=== PATIENT | female | born 1955 | race Caucasian/White ===

== ENCOUNTER 2016-09-21 12:17 | Outpatient (CLI) | payer OTHER | END 2016-09-21 12:18 | disposition home or self-care (01) | DX: S83.241A Other tear of medial meniscus, current injury, right knee, initial encounter (principal); M17.11 Unilateral primary osteoarthritis, right knee ==

== ENCOUNTER 2016-10-27 08:00 | Outpatient (CLI) | payer OTHER | END 2016-10-27 08:01 | disposition home or self-care (01) | DX: R73.9 Hyperglycemia, unspecified (principal) ==

== ENCOUNTER 2017-08-11 12:35 | Day surgery (SDC) | payer OTHER ==
[2017-08-11] MEDS ORDERED: LACTATED RINGERS 1,000 ML IV ONE (13:01)
[2017-08-11] MEDS ORDERED: MIDAZOLAM 2 MG/2 ML VIAL IVP ONE (13:45)
[2017-08-11] MEDS ORDERED: fentaNYL 100 MCG/2 ML VIAL IVP ONE (13:45)
[2017-08-11] MEDS ORDERED: fentaNYL 250 MCG/5 ML VIAL IVP ONE (13:45)
[2017-08-11 14:50] VITALS: BP 106/57
== END 2017-08-11 12:36 | disposition home or self-care (01) ==
LOC: SDS 12:35
PROVIDERS: ATTEND Surgery
PROC: 0DJD8ZZ Inspection of Lower Intestinal Tract, Via Natural or Artificial Opening Endoscopic (ICD-10-PCS; principal; 2017-08-11 13:45)
DX: Z12.11 Encounter for screening for malignant neoplasm of colon (principal); K57.30 Diverticulosis of large intestine without perforation or abscess without bleeding; K64.4 Residual hemorrhoidal skin tags; E78.5 Hyperlipidemia, unspecified; J45.909 Unspecified asthma, uncomplicated; Z79.82 Long term (current) use of aspirin
CPT/HCPCS: 45378; J3010; J7120

== ENCOUNTER 2018-05-18 09:41 | Outpatient (CLI) | payer OTHER ==
[2018-05-18 13:35] LABS: BASOPHILS % (AUTO) 0.6 %; EOSINOPHILS # (AUTO) 0.2 10^3/uL (0.0-0.7); EOSINOPHILS % (AUTO) 3.2 %; HGB - HEMOGLOBIN 15.6 g/dL (12.0-16.0); LYMPHOCYTES # (AUTO) 2.5 10^3/uL (1.5-3.5); LYMPHOCYTES % (AUTO) 34.1 %; MEAN CORPUSCULAR HEMOGLOBIN 29.8 pg (27.0-31.0); MEAN CORPUSCULAR HGB CONC 34.3 g/dL (32.0-36.0); MEAN CORPUSCULAR VOLUME 87.1 fL (81.0-99.0); MEAN PLATELET VOLUME 9.1 fL (7.9-10.8); MONOCYTES # (AUTO) 0.5 10^3/uL (0.0-1.0); MONOCYTES % (AUTO) 7.1 %; PLT - PLATELET COUNT 274 10^3/uL (130-450); RED BLOOD COUNT 5.21 10^6/uL (4.20-5.40); RED CELL DISTRIBUTION WIDTH 13.2 % (12.0-15.0); WHITE BLOOD COUNT 7.3 x10^3/uL (4.8-10.8)
[2018-05-18 19:53] LABS: FERRITIN 89.8 ng/mL (11.0-306.8); FREE T4 (FREE THYROXINE) 0.89 ng/dL (0.58-1.64); THYROID STIMULATING HORMONE 0.85 uIU/mL (0.34-5.60)
== END 2018-05-18 23:59 | disposition home or self-care (01) ==
LOC: LAB.WCP 09:41
PROVIDERS: ATTEND Physician Assistant Medical
DX: R53.83 Other fatigue (principal)
CPT/HCPCS: 36415; 82306; 82607; 82728; 84439; 84443; 84481; 85025

== ENCOUNTER 2018-07-24 12:56 | Outpatient (CLI) | payer OTHER | END 2018-07-24 12:57 | disposition home or self-care (01) | LOC: SC 12:56 | PROVIDERS: ATTEND Internal Medicine Pulmonary Disease | DX: G47.10 Hypersomnia, unspecified (principal); G47.8 Other sleep disorders; R06.83 Snoring; E66.9 Obesity, unspecified; Z68.36 Body mass index [BMI] 36.0-36.9, adult | CPT/HCPCS: 99203; 99212 ==

== ENCOUNTER 2018-08-05 20:46 | Outpatient (CLI) | payer OTHER | END 2018-08-05 20:47 | disposition home or self-care (01) | LOC: SC 20:46 | PROVIDERS: ATTEND Internal Medicine Pulmonary Disease | DX: G47.33 Obstructive sleep apnea (adult) (pediatric) (principal) | CPT/HCPCS: 95810 ==

== ENCOUNTER 2018-08-24 12:17 | Outpatient (CLI) | payer OTHER ==
--- NOTE | 2018-08-24 14:28 | Mammography Report ---
Reason: SCREENING MAMMO Procedure Date: 08/24/2018 Accession Number: [id number] / [id number] Procedure: ANA - Screening Mammo w/Bassem CPT Code: FULL RESULT: EXAM: Screening Mammo w/Bassem DATE: 08/24/2018 2:19 PM CLINICAL HISTORY: Screening encounter. History of nulliparity and early menses. Family history of breast cancer in the father around the age of 70. TECHNIQUE: Bilateral CC and MLO views were obtained. A left laterally exaggerated CC view was obtained. COMPARISON: 03/23/2017 through 01/04/2012. FINDINGS: The breasts demonstrate scattered fibroglandular densities bilaterally. There are coarse typically benign calcifications. No suspicious masses, clustered microcalcifications, or regions of architectural distortion are identified. IMPRESSION: Benign findings RECOMMENDATION: Routine annual screening unless otherwise clinically indicated. BIRADS CATEGORY 2: Benign findings STANDARD QUALIFYING STATEMENTS: 1. This examination was not reviewed with the aid of Computer-Aided Detection (CAD). 2. A negative or benign imaging report should not delay biopsy if clinically suspicious findings are present. Consider surgical consultation if warrented. More than 5% of cancers are not identified by imaging. 3. Dense breasts may obscure an underlying neoplasm. 4. This examination was reviewed with the aid of 3D breast imaging (tomosynthesis).
== END 2018-08-24 12:18 | disposition home or self-care (01) ==
LOC: DI 12:17
DX: Z12.31 Encounter for screening mammogram for malignant neoplasm of breast (principal); Z80.3 Family history of malignant neoplasm of breast
CPT/HCPCS: 77063; 77067

== ENCOUNTER 2018-08-24 12:17 | Outpatient (CLI) | payer OTHER ==
--- NOTE | 2018-08-25 10:47 | DEXA Report ---
Reason: ENCOUNTER FOR SCREENING FOR OSTEOPOROSIS Procedure Date: 08/24/2018 Accession Number: [id number] / [id number] Procedure: DEX - Dexa Spine and/or Hip CPT Code: FULL RESULT: EXAM: Dexa Spine and/or Hip DATE: 08/24/2018 1:05 PM CLINICAL HISTORY: ENCOUNTER FOR SCREENING FOR OSTEOPOROSIS TECHNIQUE: Dual energy x-ray absorptiometry (DXA) was performed on a [employer] System. Regions measured are the AP Spine, femoral neck, and if needed forearm. COMPARISON: None. In accordance with the International Society for Clinical Densitometry (ISCD) guidelines, data from previous exams may be reanalyzed using current recommendations and techniques. This is done to allow a more accurate basis for comparison with the current study. FINDINGS: The data for the lumbar spine is as follows: BMD (g/cm/cm) T-SCORE Z-SCORE REGION L1 1.056 -0.6 -0.2 L2 1.044 -1.3 -0.9 L3 1.027 -1.4 -1.0 L4 1.068 -1.1 -0.7 TOTAL 1.050 -1.1 -0.7 NOTE: All evaluable vertebrae are used for classification The data for the hip is as follows: BMD (g/cm/cm) T-SCORE Z-SCORE REGION Neck 0.890 -1.1 -0.3 TOTAL 1.068 0.5 0.9 NOTE: The femoral neck or total proximal femur, whichever is lowest, is used for classification. IMPRESSION: THE WHO CLASSIFICATION BASED ON THE INTERNATIONAL REFERENCE STANDARD IS OSTEOPENIA. THE FRACTURE RISK IS INCREASED. RECOMMENDATION: Patients with diagnosis of osteoporosis or osteopenia should have regular bone mineral density assessment. For those eligible for Medicare, routine testing is allowed once every 2 years. Testing frequency can be increased for patients who have rapidly progressing disease or for those who are receiving medical therapy to restore bone mass. COMMENT: World Health Organization (WHO) definitions for osteoporosis and osteopenia: NORMAL BMD: T-score at -1.0 or higher, fracture risk is low OSTEOPENIA BMD: T-score between -1.0 and -2.5, fracture risk is increased. OSTEOPOROSIS BMD: T-score at -2.5 or lower, fracture risk is high. National Osteoporosis Foundation recommends: 1. Obtain adequate dietary calcium (at least 1200 mg per day) and vitamin D (400-800 international units per day). 2. Participate, as appropriate, in regular weightbearing and muscle-strengthening exercise. 3. Avoid tobacco use and reduce alcohol and caffeine intake. 4. For more detailed information see the website at www.NOF.org.
== END 2018-08-24 12:18 | disposition home or self-care (01) ==
LOC: DI 12:17
PROVIDERS: ATTEND Physician Assistant Medical
DX: Z13.820 Encounter for screening for osteoporosis (principal); M85.89 Other specified disorders of bone density and structure, multiple sites
CPT/HCPCS: 77080

== ENCOUNTER 2018-09-19 09:20 | Outpatient (CLI) | payer OTHER | END 2018-09-19 09:21 | disposition home or self-care (01) | LOC: SC 09:20 | PROVIDERS: ATTEND Nurse Practitioner Family | DX: G47.33 Obstructive sleep apnea (adult) (pediatric) (principal) | CPT/HCPCS: 99212; 99214 ==

== ENCOUNTER 2018-12-11 08:00 | Outpatient (CLI) | payer OTHER ==
[2018-12-11 12:20] LABS: HB2 TOTAL 15.5 g/dL; HEMOGLOBIN A1C 0.77 g/dL; HEMOGLOBIN A1C % 6.7 % (4.6-6.2)
[2018-12-11 12:21] LABS: ALBUMIN 4.1 g/dL (3.2-5.5); ALKALINE PHOSPHATASE 83 IU/L (42-121); ALT ALANINE AMINOTRANSFERASE 34 IU/L (10-60); AST ASPARTATE AMINOTRANSFERASE 25 IU/L (10-42); BUN - BLOOD UREA NITROGEN 17 mg/dL (6-20); CALCIUM 9.3 mg/dL (8.5-10.3); CARBON DIOXIDE - CO2 23 mmol/L (21-32); CHLORIDE 106 mmol/L (101-111); CREATININE 0.8 mg/dL (0.4-1.0); GFR - MDRD 72 (>89); GLUCOSE 145 mg/dL (70-100); SODIUM 140 mmol/L (135-145); TOTAL PROTEIN 7.1 g/dL (6.7-8.2)
[2018-12-11 12:22] LABS: ALBUMIN/GLOBULIN RATIO 1.4 (1.0-2.2); CHOL/HDL RATIO 3.9 (<4.4); CHOLESTEROL 150 mg/dL; HDL CHOLESTEROL 38 mg/dL; LDL CHOLESTEROL,CALCULATED 95 mg/dL; LDL/HDL RATIO 2.5 (<4.4); VLDL CHOLESTEROL 17 mg/dL
== END 2018-12-11 08:01 | disposition home or self-care (01) ==
LOC: LAB.WCP 08:00
PROVIDERS: ATTEND Physician Assistant Medical
DX: R73.9 Hyperglycemia, unspecified (principal)
CPT/HCPCS: 36415; 80053; 80061; 83036; 83721

== ENCOUNTER 2019-03-26 08:41 | Outpatient (CLI) | payer OTHER ==
[2019-03-26 12:56] LABS: ALBUMIN 4.2 g/dL (3.2-5.5); ALBUMIN/GLOBULIN RATIO 1.6 (1.0-2.2); ALKALINE PHOSPHATASE 67 IU/L (42-121); ALT ALANINE AMINOTRANSFERASE 36 IU/L (10-60); AST ASPARTATE AMINOTRANSFERASE 23 IU/L (10-42); BILIRUBIN,TOTAL 1.1 mg/dL (0.2-1.0); BUN - BLOOD UREA NITROGEN 20 mg/dL (6-20); CALCIUM 9.4 mg/dL (8.5-10.3); CARBON DIOXIDE - CO2 23 mmol/L (21-32); CHLORIDE 107 mmol/L (101-111); CHOL/HDL RATIO 4.1 (<4.4); CHOLESTEROL 130 mg/dL; CREATININE 0.9 mg/dL (0.4-1.0); GFR - MDRD 63 (>89); GLUCOSE 133 mg/dL (70-100); HDL CHOLESTEROL 32 mg/dL; LDL CHOLESTEROL,CALCULATED 76 mg/dL; LDL/HDL RATIO 2.4 (<4.4); SODIUM 139 mmol/L (135-145); TOTAL PROTEIN 6.9 g/dL (6.7-8.2); VLDL CHOLESTEROL 22 mg/dL
[2019-03-26 14:05] LABS: HB2 TOTAL 15.5 g/dL; HEMOGLOBIN A1C 0.73 g/dL; HEMOGLOBIN A1C % 6.5 % (4.6-6.2)
== END 2019-03-26 23:59 | disposition home or self-care (01) ==
LOC: LAB.WCP 08:41
PROVIDERS: ATTEND Physician Assistant Medical
DX: E11.9 Type 2 diabetes mellitus without complications (principal)
CPT/HCPCS: 36415; 80053; 80061; 83036; 83721

== ENCOUNTER 2019-06-22 07:00 | Outpatient (CLI) | payer MEDICARE, OTHER ==
[2019-06-22 12:23] LABS: CALCIUM 9.2 mg/dL (8.5-10.3); CREATININE 0.9 mg/dL (0.4-1.0)
[2019-06-22 12:34] LABS: HB2 TOTAL 16.7 g/dL; HEMOGLOBIN A1C 0.78 g/dL; HEMOGLOBIN A1C % 6.4 % (4.6-6.2)
== END 2019-06-22 23:59 | disposition home or self-care (01) ==
LOC: LAB.WCP 07:00
PROVIDERS: ATTEND Physician Assistant Medical
DX: E11.9 Type 2 diabetes mellitus without complications (principal)
CPT/HCPCS: 36415; 80048; 83036

== ENCOUNTER 2019-10-23 08:57 | Outpatient (CLI) | payer MEDICARE, BC ==
[2019-10-23 14:09] LABS: HB2 TOTAL 16.1 g/dL; HEMOGLOBIN A1C 0.72 g/dL; HEMOGLOBIN A1C % 6.2 % (4.6-6.2)
[2019-10-23 14:10] LABS: BASOPHILS % (AUTO) 0.6 %; EOSINOPHILS # (AUTO) 0.3 10^3/uL (0.0-0.7); EOSINOPHILS % (AUTO) 3.7 %; HGB - HEMOGLOBIN 15.2 g/dL (12.0-16.0); LYMPHOCYTES # (AUTO) 2.8 10^3/uL (1.5-3.5); MEAN CORPUSCULAR HEMOGLOBIN 29.1 pg (27.0-31.0); MEAN CORPUSCULAR HGB CONC 31.9 g/dL (32.0-36.0); MEAN PLATELET VOLUME 10.9 fL (7.9-10.8); MONOCYTES # (AUTO) 0.5 10^3/uL (0.0-1.0); MONOCYTES % (AUTO) 7.3 %; NEUTROPHILS # (AUTO) 3.1 10^3/uL (1.5-6.6); NEUTROPHILS % (AUTO) 46.1 %; PLT - PLATELET COUNT 264 10^3/uL (130-450); RED BLOOD COUNT 5.23 10^6/uL (4.20-5.40); RED CELL DISTRIBUTION WIDTH 13.1 % (12.0-15.0); WHITE BLOOD COUNT 6.7 x10^3/uL (4.8-10.8)
[2019-10-23 14:22] LABS: ALBUMIN 4.1 g/dL (3.2-5.5); ALBUMIN/GLOBULIN RATIO 1.4 (1.0-2.2); ALKALINE PHOSPHATASE 82 IU/L (42-121); ALT ALANINE AMINOTRANSFERASE 43 IU/L (10-60); AST ASPARTATE AMINOTRANSFERASE 31 IU/L (10-42); BILIRUBIN,TOTAL 1.1 mg/dL (0.2-1.0); BUN - BLOOD UREA NITROGEN 17 mg/dL (6-20); CALCIUM 9.1 mg/dL (8.5-10.3); CARBON DIOXIDE - CO2 24 mmol/L (21-32); CHLORIDE 106 mmol/L (101-111); CHOL/HDL RATIO 4.4 (<4.4); CHOLESTEROL 154 mg/dL; CREATININE 0.7 mg/dL (0.4-1.0); GLUCOSE 132 mg/dL (70-100); HDL CHOLESTEROL 35 mg/dL; LDL CHOLESTEROL,CALCULATED 96 mg/dL; LDL/HDL RATIO 2.7 (<4.4); SODIUM 139 mmol/L (135-145); VLDL CHOLESTEROL 23 mg/dL
== END 2019-10-23 23:59 | disposition home or self-care (01) ==
LOC: LAB.WCP 08:57
PROVIDERS: ATTEND Physician Assistant Medical
DX: E11.9 Type 2 diabetes mellitus without complications (principal); E78.5 Hyperlipidemia, unspecified; R53.83 Other fatigue; I10 Essential (primary) hypertension
CPT/HCPCS: 36415; 80053; 80061; 82043; 83036; 83721; 84443; 85025

== ENCOUNTER 2020-01-28 08:00 | Outpatient (CLI) | payer MEDICARE, BC ==
[2020-01-28 12:24] LABS: BUN - BLOOD UREA NITROGEN 23 mg/dL (6-20); CALCIUM 9.3 mg/dL (8.5-10.3); CARBON DIOXIDE - CO2 23 mmol/L (21-32); CHLORIDE 106 mmol/L (101-111); CHOL/HDL RATIO 3.8 (<4.4); CHOLESTEROL 136 mg/dL; CREATININE 0.8 mg/dL (0.4-1.0); GLUCOSE 140 mg/dL (70-100); HDL CHOLESTEROL 36 mg/dL; LDL CHOLESTEROL,CALCULATED 77 mg/dL; LDL/HDL RATIO 2.1 (<4.4); SODIUM 137 mmol/L (135-145); VLDL CHOLESTEROL 23 mg/dL
[2020-01-28 12:58] LABS: HEMOGLOBIN A1c% 6.8 % (4.27-6.07)
== END 2020-01-28 23:58 | disposition home or self-care (01) ==
LOC: LAB.WCP 08:00
PROVIDERS: ATTEND Physician Assistant Medical
DX: E11.9 Type 2 diabetes mellitus without complications (principal)
CPT/HCPCS: 36415; 80048; 80061; 83036; 83721

== ENCOUNTER 2020-04-30 08:48 | Outpatient (CLI) | payer MEDICARE, BC ==
[2020-04-30 13:28] LABS: CALCIUM 9.6 mg/dL (8.5-10.3); CREATININE 0.8 mg/dL (0.4-1.0); POTASSIUM 4.1 mmol/L (3.5-5.0)
[2020-04-30 14:16] LABS: ESTIMATED AVERAGE GLUCOSE 148 mg/dL (70-100); HEMOGLOBIN A1c% 6.8 % (4.27-6.07)
== END 2020-04-30 23:59 | disposition home or self-care (01) ==
LOC: LAB.WCP 08:48
PROVIDERS: ATTEND Physician Assistant Medical
DX: E11.9 Type 2 diabetes mellitus without complications (principal)
CPT/HCPCS: 36415; 80048; 83036

== ENCOUNTER 2020-11-26 08:00 | Outpatient (CLI) | payer MEDICARE, BC ==
[2020-11-26 12:51] LABS: CREATININE,URINE 126.9 mg/dL; MICROALBUM/CREATININE RATIO,UR 12.6 ug/mg (<30.0); MICROALBUMIN,URINE 1.6 mg/dL (0-300.0)
[2020-11-26 12:55] LABS: ESTIMATED AVERAGE GLUCOSE 160 mg/dL (70-100); HEMOGLOBIN A1c% 7.2 % (4.27-6.07)
[2020-11-26 12:56] LABS: THYROID STIMULATING HORMONE 1.28 uIU/mL (0.34-5.60)
[2020-11-26 13:10] LABS: ALBUMIN 4.5 g/dL (3.2-5.5); ALBUMIN/GLOBULIN RATIO 1.7 (1.0-2.2); ALKALINE PHOSPHATASE 76 IU/L (42-121); ALT ALANINE AMINOTRANSFERASE 42 IU/L (10-60); AST ASPARTATE AMINOTRANSFERASE 29 IU/L (10-42); BILIRUBIN,TOTAL 1.3 mg/dL (0.2-1.0); BUN - BLOOD UREA NITROGEN 18 mg/dL (6-20); CALCIUM 9.2 mg/dL (8.5-10.3); CARBON DIOXIDE - CO2 23 mmol/L (21-32); CHLORIDE 104 mmol/L (101-111); CHOL/HDL RATIO 4.6 (<4.4); CHOLESTEROL 147 mg/dL; CREATININE 0.8 mg/dL (0.4-1.0); GFR - MDRD 72 (>89); GLUCOSE 152 mg/dL (70-100); HDL CHOLESTEROL 32 mg/dL; LDL CHOLESTEROL,CALCULATED 87 mg/dL; LDL/HDL RATIO 2.7 (<4.4); POTASSIUM 4.1 mmol/L (3.5-5.0); SODIUM 137 mmol/L (135-145); TOTAL PROTEIN 7.1 g/dL (6.7-8.2); TRIGLYCERIDES 139 mg/dL; VLDL CHOLESTEROL 28 mg/dL
== END 2020-11-26 23:59 | disposition home or self-care (01) ==
LOC: LAB.WCP 08:00
PROVIDERS: ATTEND Physician Assistant Medical
DX: E11.9 Type 2 diabetes mellitus without complications (principal)
CPT/HCPCS: 36415; 80053; 80061; 82043; 82570; 83036; 83721; 84443

== ENCOUNTER 2021-03-02 08:00 | Outpatient (CLI) | payer MEDICARE, BC ==
[2021-03-02 13:19] LABS: CALCIUM 9.3 mg/dL (8.5-10.3); CREATININE 0.7 mg/dL (0.4-1.0); POTASSIUM 4.3 mmol/L (3.5-5.0)
[2021-03-02 14:00] LABS: ESTIMATED AVERAGE GLUCOSE 171 mg/dL (70-100); HEMOGLOBIN A1c% 7.6 % (4.27-6.07)
== END 2021-03-02 23:59 | disposition home or self-care (01) ==
LOC: LAB.WCP 08:00
PROVIDERS: ATTEND Physician Assistant Medical
DX: E11.9 Type 2 diabetes mellitus without complications (principal)
CPT/HCPCS: 36415; 80048; 83036

== ENCOUNTER 2021-03-31 13:35 | Outpatient (CLI) | payer MEDICARE, BC ==
--- NOTE | 2021-04-08 09:02 | Mammography Report ---
BILATERAL DIGITAL SCREENING MAMMOGRAM 3D/2D: 03/31/2021 CLINICAL: Routine screening. Family history of breast cancer. Comparison is made to exams dated: 12/28/2019 mammogram, 08/24/2018 mammogram, 03/23/2017 mammogram, 1 mammogram, 02/21/2015 mammogram, and 01/10/2014 mammogram - [facility]. Th ere are scattered fibroglandular elements in both breasts. No significant masses, calcifications, or other findings are seen in either breast. There has been no significant interval change. IMPRESSION: NEGATIVE There is no mammographic evidence of malignancy. A 1 year screening mammogram is recommended. This exam was interpreted at Station ID: [id number]. NOTE: For mammograms, a report in lay terms will be sent to the patient. Approximately 15% of breast malignancies will not be visualized mammographically. In the management of a palpable breast mass, a negative mammogram must not discourage biopsy of a clinically suspicious lesion. Electronically Signed By: Sridhar Peters M.D. ddp/penrad:04/07/2021 14:55:20 ACR BI-RADS Category 1: Negative 3341F PARENCHYMAL PATTERN: (A) - The breast(s) demonstrate(s) scattered fibroglandular densities. BI-RADS CATEGORY: (1) - 1 RECOMMENDATION: (ANNUAL) - Recommend routine annual screening mammography. [id number] 1 year screening LATERALITY: (B)
== END 2021-03-31 13:36 | disposition home or self-care (01) ==
LOC: DI 13:35
PROVIDERS: ATTEND Physician Assistant Medical
DX: Z12.31 Encounter for screening mammogram for malignant neoplasm of breast (principal); Z80.3 Family history of malignant neoplasm of breast

== ENCOUNTER 2021-03-31 13:40 | Outpatient (CLI) | payer MEDICARE, BC ==
--- NOTE | 2021-03-31 14:47 | DEXA Report ---
PROCEDURE: Dexa Spine and/or Hip INDICATIONS: POST MENOPAUSAL TECHNIQUE: Dual energy x-ray absorptiometry (DXA) was performed on a [employer] System. Regions measur ed are the AP Spine, femoral neck, and if needed forearm. COMPARISON: 08/24/2018 FINDINGS: Lumbar Spine: Bone Mineral Density 1.149 g/cm/cm,T score -0.3, normal bone density Left Femoral Neck: Bone Mineral Density 1.044 g/cm/cm, T score 0.3, normal bone density (T score greater or equal to -1.0: NORMAL) (T score from -1.1 to -2.4: OSTEOPENIA) (T score less than or equal to -2.5 to: OSTEOPOROSIS) Impression: Normal bone density. Patients with diagnosis of osteoporosis or osteopenia should have regular bone mineral density assess ment. For those eligible for Medicare, routine testing is allowed once every 2 years. Testing frequ ency can be increased for patients who have rapidly progressing disease or for those who are receivin g medical therapy to restore bone mass. Reviewed by: Romain Johnson MD on 03/31/2021 2:46 PM PDT Approved by: Romain Johnson MD on 03/31/2021 2:46 PM PDT Station ID: [id number]
== END 2021-03-31 13:41 | disposition home or self-care (01) ==
LOC: DI 13:40
PROVIDERS: ATTEND Physician Assistant Medical
DX: Z78.0 Asymptomatic menopausal state (principal)

== ENCOUNTER 2021-06-08 08:00 | Outpatient (CLI) | payer MEDICARE, BC ==
[2021-06-08 12:23] LABS: ESTIMATED AVERAGE GLUCOSE 180 mg/dL (70-100); HEMOGLOBIN A1c% 7.9 % (4.27-6.07)
[2021-06-08 12:38] LABS: ALBUMIN 4.4 g/dL (3.2-5.5); ALBUMIN/GLOBULIN RATIO 1.6 (1.0-2.2); ALKALINE PHOSPHATASE 68 IU/L (42-121); ALT ALANINE AMINOTRANSFERASE 51 IU/L (10-60); AST ASPARTATE AMINOTRANSFERASE 33 IU/L (10-42); BILIRUBIN,TOTAL 1.2 mg/dL (0.2-1.0); BUN - BLOOD UREA NITROGEN 18 mg/dL (6-20); CALCIUM 9.7 mg/dL (8.5-10.3); CARBON DIOXIDE - CO2 26 mmol/L (21-32); CHLORIDE 102 mmol/L (101-111); CHOL/HDL RATIO 4.8 (<4.4); CHOLESTEROL 164 mg/dL; CREATININE 0.8 mg/dL (0.4-1.0); GFR - MDRD 71 (>89); GLUCOSE 192 mg/dL (70-100); HDL CHOLESTEROL 34 mg/dL; LDL CHOLESTEROL,CALCULATED 104 mg/dL; LDL/HDL RATIO 3.1 (<4.4); POTASSIUM 4.4 mmol/L (3.5-5.0); SODIUM 139 mmol/L (135-145); TOTAL PROTEIN 7.2 g/dL (6.7-8.2); TRIGLYCERIDES 128 mg/dL; VLDL CHOLESTEROL 26 mg/dL
== END 2021-06-08 23:59 ==
LOC: LAB.WCP 08:00
PROVIDERS: ATTEND Physician Assistant Medical
DX: E11.9 Type 2 diabetes mellitus without complications (principal)
CPT/HCPCS: 36415; 80053; 80061; 83036; 83721

== ENCOUNTER 2021-09-02 09:36 | Outpatient (CLI) | payer MEDICARE, BC ==
[2021-09-02 12:35] LABS: ESTIMATED AVERAGE GLUCOSE 177 mg/dL (70-100); HEMOGLOBIN A1c% 7.8 % (4.27-6.07)
[2021-09-02 13:06] LABS: ALBUMIN 4.6 g/dL (3.2-5.5); ALBUMIN/GLOBULIN RATIO 1.7 (1.0-2.2); ALKALINE PHOSPHATASE 78 IU/L (42-121); ALT ALANINE AMINOTRANSFERASE 58 IU/L (10-60); AST ASPARTATE AMINOTRANSFERASE 36 IU/L (10-42); BILIRUBIN,TOTAL 1.4 mg/dL (0.2-1.0); BUN - BLOOD UREA NITROGEN 17 mg/dL (6-20); CALCIUM 9.2 mg/dL (8.5-10.3); CARBON DIOXIDE - CO2 26 mmol/L (21-32); CHLORIDE 103 mmol/L (101-111); CHOL/HDL RATIO 3.9 (<4.4); CHOLESTEROL 136 mg/dL; CREATININE 0.9 mg/dL (0.4-1.0); GFR - MDRD 62 (>89); GLUCOSE 168 mg/dL (70-100); HDL CHOLESTEROL 35 mg/dL; LDL CHOLESTEROL,CALCULATED 80 mg/dL; LDL/HDL RATIO 2.3 (<4.4); POTASSIUM 4.4 mmol/L (3.5-5.0); SODIUM 137 mmol/L (135-145); TOTAL PROTEIN 7.3 g/dL (6.7-8.2); TRIGLYCERIDES 107 mg/dL; VLDL CHOLESTEROL 21 mg/dL
== END 2021-09-02 09:37 | disposition home or self-care (01) ==
LOC: LAB.N 09:36
PROVIDERS: ATTEND Physician Assistant Medical
DX: E78.5 Hyperlipidemia, unspecified (principal); E11.9 Type 2 diabetes mellitus without complications
CPT/HCPCS: 36415; 80053; 80061; 83036; 83721

== ENCOUNTER 2021-12-10 09:07 | Outpatient (CLI) | payer MEDICARE, BC ==
[2021-12-10 12:09] LABS: ALBUMIN 4.4 g/dL (3.2-5.5); ALBUMIN/GLOBULIN RATIO 1.6 (1.0-2.2); ALKALINE PHOSPHATASE 76 IU/L (42-121); ALT ALANINE AMINOTRANSFERASE 53 IU/L (10-60); AST ASPARTATE AMINOTRANSFERASE 34 IU/L (10-42); BILIRUBIN,TOTAL 1.2 mg/dL (0.2-1.0); BUN - BLOOD UREA NITROGEN 17 mg/dL (6-20); CALCIUM 9.7 mg/dL (8.5-10.3); CARBON DIOXIDE - CO2 24 mmol/L (21-32); CHLORIDE 103 mmol/L (101-111); CHOL/HDL RATIO 3.4 (<4.4); CHOLESTEROL 112 mg/dL; CREATININE 0.8 mg/dL (0.4-1.0); GFR - MDRD 71 (>89); GLUCOSE 156 mg/dL (70-100); HDL CHOLESTEROL 33 mg/dL; LDL CHOLESTEROL,CALCULATED 57 mg/dL; LDL/HDL RATIO 1.7 (<4.4); POTASSIUM 4.3 mmol/L (3.5-5.0); SODIUM 139 mmol/L (135-145); TOTAL PROTEIN 7.2 g/dL (6.7-8.2); TRIGLYCERIDES 112 mg/dL; VLDL CHOLESTEROL 22 mg/dL
[2021-12-10 15:30] LABS: ESTIMATED AVERAGE GLUCOSE 166 mg/dL (70-100); HEMOGLOBIN A1c% 7.4 % (4.27-6.07)
== END 2021-12-10 09:08 | disposition home or self-care (01) ==
LOC: LAB.N 09:07
PROVIDERS: ATTEND Physician Assistant Medical
DX: E78.5 Hyperlipidemia, unspecified (principal); E11.9 Type 2 diabetes mellitus without complications
CPT/HCPCS: 36415; 80053; 80061; 83036; 83721

== ENCOUNTER 2022-03-18 09:38 | Outpatient (CLI) | payer MEDICARE, BC ==
[2022-03-18 12:33] LABS: ESTIMATED AVERAGE GLUCOSE 166 mg/dL (70-100); HEMOGLOBIN A1c% 7.4 % (4.27-6.07)
[2022-03-18 12:59] LABS: CALCIUM 9.6 mg/dL (8.5-10.3); CREATININE 0.7 mg/dL (0.4-1.0); POTASSIUM 4.7 mmol/L (3.5-5.0)
== END 2022-03-18 09:39 | disposition home or self-care (01) ==
LOC: LAB.N 09:38
PROVIDERS: ATTEND Physician Assistant Medical
DX: E11.9 Type 2 diabetes mellitus without complications (principal); R53.83 Other fatigue
CPT/HCPCS: 36415; 80048; 82607; 83036

== ENCOUNTER 2022-04-01 10:50 | Outpatient (CLI) | payer MEDICARE, BC | END 2022-04-01 10:51 | disposition home or self-care (01) | LOC: NS 10:50 | PROVIDERS: ATTEND Physician Assistant Medical | DX: E11.9 Type 2 diabetes mellitus without complications (principal); Z71.3 Dietary counseling and surveillance; Z71.89 Other specified counseling; Z68.35 Body mass index [BMI] 35.0-35.9, adult | CPT/HCPCS: 97803 ==

== ENCOUNTER 2022-04-02 09:28 | Outpatient (CLI) | payer MEDICARE, BC ==
[2022-04-02 13:02] LABS: CHOLESTEROL 119 mg/dL; HDL CHOLESTEROL 40 mg/dL; LDL CHOLESTEROL,CALCULATED 49 mg/dL; LDL/HDL RATIO 1.2 (<4.4); TRIGLYCERIDES 148 mg/dL; VLDL CHOLESTEROL 30 mg/dL
== END 2022-04-02 09:29 | disposition home or self-care (01) ==
LOC: LAB.N 09:28
PROVIDERS: ATTEND Physician Assistant Medical
DX: E78.5 Hyperlipidemia, unspecified (principal)
CPT/HCPCS: 36415; 80061; 83721

== ENCOUNTER 2022-05-07 10:46 | Outpatient (CLI) | payer MEDICARE, BC | END 2022-05-07 10:47 | disposition home or self-care (01) | LOC: NS 10:46 | PROVIDERS: ATTEND Physician Assistant Medical | DX: E11.9 Type 2 diabetes mellitus without complications (principal); Z71.3 Dietary counseling and surveillance; Z71.89 Other specified counseling; Z68.35 Body mass index [BMI] 35.0-35.9, adult | CPT/HCPCS: 97803 ==

== ENCOUNTER 2022-05-10 14:06 | Outpatient (CLI) | payer MEDICARE, BC ==
--- NOTE | 2022-05-11 15:24 | Mammography Report ---
BILATERAL DIGITAL SCREENING MAMMOGRAM 3D/2D: 05/10/2022 CLINICAL: Routine screening. Comparison is made to exams dated: 03/31/2021 mammogram, 12/28/2019 mammogram, and 08/24/2018 mammogram - [facility]. There are scattered areas of fibroglandular density in both breasts (category b / 25%-50% glandular t issue). No significant masses, calcifications, or other findings are seen in either breast. There has been no significant interval change. IMPRESSION: NEGATIVE There is no mammographic evidence of malignancy. A 1 year screening mammogram is recommended. Based on the Tyrer Cuzick model (a risk assessment model) the patients lifetime risk is 12.1% and he r 10 year risk is 7.2%. According to the ACR, ACS, and NCCN guidelines, an annual breast MRI exam johnathan ng with mammogram is recommended if the patients lifetime risk is 20% or greater. This exam was interpreted at Station ID: [id number]. NOTE: For mammograms, a report in lay terms will be sent to the patient. Approximately 15% of breast malignancies will not be visualized mammographically. In the management of a palpable breast mass, a negative mammogram must not discourage biopsy of a clinically suspicious lesion. Electronically Signed By: Cheng vega/elian:05/10/2022 14:58:51 ACR BI-RADS Category 1: Negative 3341F PARENCHYMAL PATTERN: (A) - The breast(s) demonstrate(s) scattered fibroglandular densities. BI-RADS CATEGORY: (1) - 1 RECOMMENDATION: (ANNUAL) - Recommend routine annual screening mammography. [id number] 1 year screening LATERALITY: (B)
== END 2022-05-10 14:07 | disposition home or self-care (01) ==
LOC: DI 14:06
DX: Z12.31 Encounter for screening mammogram for malignant neoplasm of breast (principal)

== ENCOUNTER 2022-07-02 08:33 | Outpatient (CLI) | payer MEDICARE, BC ==
[2022-07-02 12:19] LABS: ALBUMIN 4.1 g/dL (3.2-5.5); ALBUMIN/GLOBULIN RATIO 1.5 (1.0-2.2); ALKALINE PHOSPHATASE 69 IU/L (42-121); ALT ALANINE AMINOTRANSFERASE 57 IU/L (10-60); AST ASPARTATE AMINOTRANSFERASE 44 IU/L (10-42); BILIRUBIN,TOTAL 1.5 mg/dL (0.2-1.0); BUN - BLOOD UREA NITROGEN 16 mg/dL (6-20); CALCIUM 9.5 mg/dL (8.5-10.3); CARBON DIOXIDE - CO2 24 mmol/L (21-32); CHLORIDE 104 mmol/L (101-111); CHOLESTEROL 125 mg/dL; CREATININE 0.7 mg/dL (0.4-1.0); GFR - MDRD 83 (>89); GLUCOSE 153 mg/dL (70-100); HDL CHOLESTEROL 31 mg/dL; LDL CHOLESTEROL,CALCULATED 69 mg/dL; LDL/HDL RATIO 2.2 (<4.4); POTASSIUM 4.2 mmol/L (3.5-5.0); SODIUM 138 mmol/L (135-145); TOTAL PROTEIN 6.9 g/dL (6.7-8.2); TRIGLYCERIDES 124 mg/dL; VLDL CHOLESTEROL 25 mg/dL
[2022-07-02 12:20] LABS: ESTIMATED AVERAGE GLUCOSE 160 mg/dL (70-100); HEMOGLOBIN A1c% 7.2 % (4.27-6.07)
== END 2022-07-02 08:34 | disposition home or self-care (01) ==
LOC: LAB.N 08:33
PROVIDERS: ATTEND Physician Assistant Medical
DX: E11.9 Type 2 diabetes mellitus without complications (principal); R53.83 Other fatigue
CPT/HCPCS: 36415; 80053; 80061; 82607; 83036; 83721

== ENCOUNTER 2022-08-19 14:31 | Outpatient (CLI) | payer MEDICARE, BC | END 2022-08-19 14:32 | disposition home or self-care (01) | LOC: MAC.MOP 14:31 | PROVIDERS: ATTEND Physician Assistant Medical | DX: R00.2 Palpitations (principal) | CPT/HCPCS: 93246 ==

== ENCOUNTER 2022-09-14 10:30 | Outpatient (CLI) | payer MEDICARE, BC | END 2022-09-14 10:31 | disposition home or self-care (01) | LOC: MAC.INF 10:30 | PROVIDERS: ATTEND Physician Assistant Medical | DX: I49.8 Other specified cardiac arrhythmias (principal); I47.1 Supraventricular tachycardia; I49.1 Atrial premature depolarization; I49.3 Ventricular premature depolarization | CPT/HCPCS: 93248 ==

== ENCOUNTER 2022-10-14 08:28 | Outpatient (CLI) | payer MEDICARE, BC ==
[2022-10-14 11:50] LABS: CALCIUM 9.2 mg/dL (8.5-10.3); CREATININE 0.7 mg/dL (0.4-1.0); POTASSIUM 4.3 mmol/L (3.5-5.0)
[2022-10-14 12:19] LABS: ESTIMATED AVERAGE GLUCOSE 154 mg/dL (70-100)
== END 2022-10-14 08:29 | disposition home or self-care (01) ==
LOC: LAB.N 08:28
PROVIDERS: ATTEND Physician Assistant Medical
DX: E11.9 Type 2 diabetes mellitus without complications (principal)
CPT/HCPCS: 36415; 80048; 83036

== ENCOUNTER 2023-01-12 08:40 | Outpatient (CLI) | payer MEDICARE, BC ==
[2023-01-12 13:24] LABS: ALBUMIN 4.1 g/dL (3.2-5.5); ALBUMIN/GLOBULIN RATIO 1.5 (1.0-2.2); ALKALINE PHOSPHATASE 65 IU/L (42-121); ALT ALANINE AMINOTRANSFERASE 54 IU/L (10-60); AST ASPARTATE AMINOTRANSFERASE 39 IU/L (10-42); BILIRUBIN,TOTAL 1.3 mg/dL (0.2-1.0); BUN - BLOOD UREA NITROGEN 23 mg/dL (6-20); CALCIUM 9.1 mg/dL (8.5-10.3); CARBON DIOXIDE - CO2 27 mmol/L (21-32); CHLORIDE 106 mmol/L (101-111); CHOL/HDL RATIO 3.7 (<4.4); CHOLESTEROL 118 mg/dL; CREATININE 0.6 mg/dL (0.4-1.0); GFR - MDRD 99 (>89); GLUCOSE 137 mg/dL (70-100); HDL CHOLESTEROL 32 mg/dL; LDL CHOLESTEROL,CALCULATED 64 mg/dL; POTASSIUM 4.3 mmol/L (3.5-5.0); SODIUM 139 mmol/L (135-145); TOTAL PROTEIN 6.9 g/dL (6.7-8.2); TRIGLYCERIDES 112 mg/dL; VLDL CHOLESTEROL 22 mg/dL
[2023-01-12 20:23] LABS: ESTIMATED AVERAGE GLUCOSE 160 mg/dL (70-100); HEMOGLOBIN A1c% 7.2 % (4.27-6.07)
== END 2023-01-12 08:41 | disposition home or self-care (01) ==
LOC: LAB.N 08:40
PROVIDERS: ATTEND Physician Assistant Medical
DX: E11.9 Type 2 diabetes mellitus without complications (principal); R53.83 Other fatigue
CPT/HCPCS: 36415; 80053; 80061; 82607; 83036; 83721

== ENCOUNTER 2023-05-13 08:57 | Outpatient (CLI) | payer MEDICARE, BC ==
[2023-05-13 12:33] LABS: ESTIMATED AVERAGE GLUCOSE 151 mg/dL (70-100); HEMOGLOBIN A1c% 6.9 % (4.27-6.07)
[2023-05-13 12:44] LABS: CALCIUM 9.9 mg/dL (8.5-10.3); CREATININE 0.7 mg/dL (0.6-1.3); POTASSIUM 4.4 mmol/L (3.5-4.5)
== END 2023-05-13 08:58 | disposition home or self-care (01) ==
LOC: LAB.N 08:57
PROVIDERS: ATTEND Physician Assistant Medical
DX: E11.9 Type 2 diabetes mellitus without complications (principal)
CPT/HCPCS: 36415; 80048; 83036

== ENCOUNTER 2023-06-01 10:17 | Outpatient (CLI) | payer MEDICARE, BC ==
--- NOTE | 2023-06-01 16:49 | Mammography Report ---
BILATERAL DIGITAL SCREENING MAMMOGRAM 3D/2D: 06/01/2023 CLINICAL: Routine screening. Comparison is made to exams dated: 05/10/2022 mammogram, 03/31/2021 mammogram, 12/28/2019 mammogram, mammogram, 03/23/2017 mammogram, and 03/22/2016 mammogram - [facility]. There are scattered areas of fibroglandular density in both breasts (category b / 25%-50% glandular t issue). There is a focal asymmetry in the left breast at 1 o'clock posterior depth. No other significant masses, calcifications, or other findings are seen in either breast. IMPRESSION: INCOMPLETE: NEEDS ADDITIONAL IMAGING EVALUATION The focal asymmetry in the left breast is indeterminate. Additional views with possible ultrasound a re recommended. Based on the Tyrer Cuzick model (a risk assessment model) the patients lifetime risk is 11.5% and he r 10 year risk is 7.4%. According to the ACR, ACS, and NCCN guidelines, an annual breast MRI exam johnathan ng with mammogram is recommended if the patients lifetime risk is 20% or greater. This exam was interpreted at Station ID: [id number]. NOTE: For mammograms, a report in lay terms will be sent to the patient. Approximately 15% of breast malignancies will not be visualized mammographically. In the management of a palpable breast mass, a negative mammogram must not discourage biopsy of a clinically suspicious lesion. Electronically Signed By: Jackelyn Carey M.D. lk/:06/01/2023 13:14:52 ACR BI-RADS Category 0: Incomplete 3340F PARENCHYMAL PATTERN: (A) - The breast(s) demonstrate(s) scattered fibroglandular densities. BI-RADS CATEGORY: (0) - 0 Mammo and [place] [id number] Immediate follow-up LATERALITY: (B)
== END 2023-06-01 10:18 | disposition home or self-care (01) ==
LOC: DI 10:17
DX: Z12.31 Encounter for screening mammogram for malignant neoplasm of breast (principal); R92.323 Mammographic fibroglandular density, bilateral breasts; R92.8 Other abnormal and inconclusive findings on diagnostic imaging of breast

== ENCOUNTER 2023-06-29 12:35 | Outpatient (CLI) | payer MEDICARE, BC ==
--- NOTE | 2023-06-30 15:57 | Mammography Report ---
UNILATERAL LEFT DIGITAL DIAGNOSTIC MAMMOGRAM 3D/2D WITH SPOT COMPRESSION: 06/29/2023 CLINICAL: Patient returns today to evaluate a focal asymmetry in the left breast. Comparison is made to exams dated: 06/01/2023 mammogram, 05/10/2022 mammogram, 03/31/2021 mammogram, mammogram, 08/24/2018 mammogram, and 03/23/2017 mammogram - [facility]. There are scattered areas of fibroglandular density in the left breast (category b / 25%-50% glandula r tissue). There is an oval equal density focal asymmetry with an obscured margin in the left breast at 3 o'cloc k middle depth. This is seen in additional views. No other significant masses or calcifications are seen in the breast. IMPRESSION: INCOMPLETE: NEEDS ADDITIONAL IMAGING EVALUATION The oval equal density focal asymmetry in the left breast is indeterminate. An ultrasound is recommended for further evaluation and is scheduled to immediately follow this exami nation. Based on the Tyrer Cuzick model (a risk assessment model) the patient's lifetime risk is 11.5% and he r 10 year risk is 7.4%. According to the ACR, ACS, and NCCN guidelines, an annual breast MRI exam johnathan ng with mammogram is recommended if the patients lifetime risk is 20% or greater. This exam was interpreted at Station ID: [id number]. NOTE: For mammograms, a report in lay terms will be sent to the patient. Approximately 15% of breast malignancies will not be visualized mammographically. In the management of a palpable breast mass, a negative mammogram must not discourage biopsy of a clinically suspicious lesion. Electronically Signed By: Romain Johnson M.D. aty/:06/29/2023 13:17:25 ACR BI-RADS Category 0: Incomplete 3340F PARENCHYMAL PATTERN: (A) - The breast(s) demonstrate(s) scattered fibroglandular densities. BI-RADS CATEGORY: (0) - 0 Ultrasound [id number] Immediate follow-up LATERALITY: (L)
--- NOTE | 2023-06-30 15:57 | Ultrasound Report ---
LIMITED ULTRASOUND OF LEFT BREAST AND AXILLA: 06/29/2023 CLINICAL: Patient returns today to evaluate a focal asymmetry in the left breast. Comparison is made to exams dated: 06/29/2023 mammogram, 06/01/2023 mammogram, 05/10/2022 mammogram, mammogram, 12/28/2019 mammogram, and 08/24/2018 mammogram - [facility]. Real-time ultrasound of the left breast 2-4 o'clock, and axilla regions was performed. Brown scale i mages of the real-time examination were reviewed. No significant abnormalities were seen sonographically in the left breast. IMPRESSION: PROBABLY BENIGN There is no abnormality seen in the left breast to correspond with the mammography finding which like ly represents normal fibroglandular tissue. A follow-up left mammogram with possible ultrasound in 6 months is recommended to demonstrate stabili ty. Findings and recommendations were conveyed to the patient during today's evaluation. This exam was interpreted at Station ID: [id number]. Electronically Signed By: Romain Johnson M.D. aty/:06/29/2023 14:49:42 Ultrasound BI-RADS: 3 Probably benign BI-RADS CATEGORY: (3) - 3 Mammo and [place] [id number] 6 month follow-up LATERALITY: (L)
== END 2023-06-29 12:36 | disposition home or self-care (01) ==
LOC: DI 12:35
PROVIDERS: ATTEND Physician Assistant Medical
DX: R92.8 Other abnormal and inconclusive findings on diagnostic imaging of breast (principal); R92.322 Mammographic fibroglandular density, left breast

== ENCOUNTER 2023-08-11 09:16 | Outpatient (CLI) | payer MEDICARE, BC ==
[2023-08-11 12:16] LABS: ESTIMATED AVERAGE GLUCOSE 160 mg/dL (70-100); HEMOGLOBIN A1c% 7.2 % (4.27-6.07)
[2023-08-11 12:23] LABS: MAGNESIUM 1.9 mg/dL (1.7-2.3)
[2023-08-11 12:29] LABS: BUN - BLOOD UREA NITROGEN 19 mg/dL (6-20); CALCIUM 9.7 mg/dL (8.5-10.3); CARBON DIOXIDE - CO2 26 mmol/L (21-32); CHLORIDE 105 mmol/L (101-111); CHOL/HDL RATIO 3.6 (<4.4); CHOLESTEROL 130 mg/dL; CREATININE 0.7 mg/dL (0.6-1.3); GFR - MDRD 83 (>89); GLUCOSE 160 mg/dL (74-104); HDL CHOLESTEROL 36 mg/dL; LDL CHOLESTEROL,CALCULATED 63 mg/dL; LDL/HDL RATIO 1.8 (<4.4); POTASSIUM 4.3 mmol/L (3.5-4.5); SODIUM 138 mmol/L (135-145); TRIGLYCERIDES 155 mg/dL (48-352); VLDL CHOLESTEROL 31 mg/dL
== END 2023-08-11 09:17 | disposition home or self-care (01) ==
LOC: LAB.N 09:16
PROVIDERS: ATTEND Physician Assistant Medical
DX: E11.9 Type 2 diabetes mellitus without complications (principal); E78.5 Hyperlipidemia, unspecified; E55.9 Vitamin D deficiency, unspecified; R53.83 Other fatigue; I47.10 Supraventricular tachycardia, unspecified
CPT/HCPCS: 36415; 80048; 80061; 82306; 82607; 83036; 83721; 83735

== ENCOUNTER 2023-11-16 09:09 | Outpatient (CLI) | payer MEDICARE, BC ==
[2023-11-16 12:08] LABS: CREATININE 0.8 mg/dL (0.6-1.3); POTASSIUM 4.6 mmol/L (3.5-4.5)
[2023-11-16 12:15] LABS: ESTIMATED AVERAGE GLUCOSE 169 mg/dL (70-100); HEMOGLOBIN A1c% 7.5 % (4.27-6.07)
== END 2023-11-16 09:10 | disposition home or self-care (01) ==
LOC: LAB.N 09:09
PROVIDERS: ATTEND Physician Assistant Medical
DX: E11.9 Type 2 diabetes mellitus without complications (principal)
CPT/HCPCS: 36415; 80048; 83036

== ENCOUNTER 2024-02-21 13:36 | Outpatient (CLI) | payer MEDICARE, BC ==
--- NOTE | 2024-02-22 11:00 | Mammography Report ---
UNILATERAL LEFT DIGITAL DIAGNOSTIC MAMMOGRAM 3D/2D: 02/21/2024 CLINICAL: Patient returns for a 6 month follow up of the left breast. Comparison is made to exams dated: 06/29/2023 mammogram, 06/01/2023 mammogram, 05/10/2022 mammogram, mammogram, 12/28/2019 mammogram, and 06/29/2023 ultrasound - [facility]. There are scattered areas of fibroglandular density (category b / 25%-50% glandular tissue). There is a focal asymmetry in the left breast at 3 o'clock middle depth. This is not significantly c hanged and was not seen on the prior ultrasound. No other significant masses or calcifications are seen in the breast. IMPRESSION: PROBABLY BENIGN Stable focal asymmetry in the left breast resembles fibroglandular tissue and is probably benign. A follow-up mammogram in 6 months is recommended to demonstrate stability. Patient will be due for right mammogram at that time. Based on the Tyrer Cuzick model (a risk assessment model) the patient's lifetime risk is 11.5% and he r 10 year risk is 7.4%. According to the ACR, ACS, and NCCN guidelines, an annual breast MRI exam johnathan ng with mammogram is recommended if the patient's lifetime risk is 20% or greater. This exam was interpreted at Station ID: [id number]. NOTE: For mammograms, a report in lay terms will be sent to the patient. Approximately 15% of breast malignancies will not be visualized mammographically. In the management of a palpable breast mass, a negative mammogram must not discourage biopsy of a clinically suspicious lesion. Electronically Signed By: Rigo Escobar M.D. slc/:02/21/2024 14:19:03 ACR BI-RADS Category 3: Probably Benign PARENCHYMAL PATTERN: (A) - The breast(s) demonstrate(s) scattered fibroglandular densities. BI-RADS CATEGORY: (3) - 3 Mammogram [id number] 6 month follow-up LATERALITY: (B)
== END 2024-02-21 13:37 | disposition home or self-care (01) ==
LOC: DI 13:36
PROVIDERS: ATTEND Physician Assistant Medical
DX: R92.8 Other abnormal and inconclusive findings on diagnostic imaging of breast (principal); R92.322 Mammographic fibroglandular density, left breast